=== PATIENT | male | born 1955 | race Caucasian/White ===

== ENCOUNTER → 2019-10-03 | Emergency (ER) | payer OTHER ==
[~2019-10-03] VITALS: Ht 177.8 cm; Wt 136.1 kg
[~2019-10-03] MED LIST: methylPREDNISolone SOD SUCC 125 MG/2 ML VL IM ONE
[2019-10-03 03:37] VITALS: BP 176/82
== END | disposition home or self-care (01) ==
LOC: ER 03:06
DX: J44.9 Chronic obstructive pulmonary disease, unspecified (principal); J01.00 Acute maxillary sinusitis, unspecified; I10 Essential (primary) hypertension; Z20.828 Contact with and (suspected) exposure to other viral communicable diseases
CPT/HCPCS: 71045; 87070; 87635; 87804; 87880; 96372; 99284; J2930